=== PATIENT | female | born 1990 | race Caucasian/White ===

== ENCOUNTER 2019-01-16 13:32 | Emergency (ER) | payer SELFPAY ==
--- NOTE | 2019-01-16 14:09 | ER ---
Nurse's Notes [facility] Name: Yashira Torres Age: 28 yrs Sex: Female : 1990 Arrival Date: 01/16/2019 Time: 13:36 Bed 19 Private MD: Diagnosis: Cutaneous abscess of right hand-middle finger Presentation: 01/16 13:37 Presenting complaint: Patient states: I was stung by a weird bug on , it was in la1 my glove when I put it on and today it started leaking these like yellow/white balls and it is extremely painful. Transition of care: patient was not received from another setting of care. Onset of symptoms was January 16, 2019. Risk Assessment: Do you want to hurt yourself or someone else? Patient reports no desire to harm self or others. Initial Sepsis Screen: Does the patient meet any 2 criteria? No. Patient's initial sepsis screen is negative. Does the patient have a suspected source of infection? No. Patient's initial sepsis screen is negative. Care prior to arrival: None. 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 - Social history:: Smoking status: Patient/guardian denies using tobacco. - Ebola Screening: : No symptoms or risks identified at this time. Screenin:00 Abuse screen: Denies threats or abuse. Nutritional screening: No deficits noted. em Tuberculosis screening: No symptoms or risk factors identified. Fall Risk None identified. Assessment: 14:00 General: Appears in no apparent distress. comfortable, Behavior is calm, cooperative, em Denies fever. Pain: Pain: Complains of pain in dorsal aspect of distal phalanx of right middle finger. Neuro: Level of Consciousness is awake, alert, obeys commands, Oriented to person, place, time, situation. Cardiovascular: Capillary refill < 3 seconds Patient's skin is warm and dry. Respiratory: Airway is patent Respiratory effort is even, unlabored, Respiratory pattern is regular, symmetrical. Derm: Skin is intact, is healthy with good turgor, Skin is red, Wound noted dorsal aspect of distal phalanx of right middle finger. Musculoskeletal: Capillary refill < 3 seconds, Range of motion: intact in all extremities. 14:05 Reassessment: Patient appears in no apparent distress at this time. i agree with above iw assessment by Russ Sotomayor LVN. Vital Signs: 13:38 BP 123 / 65; Pulse 97; Resp 16; Temp 98.6; Pulse Ox 98% on R/A; Weight 83.01 kg; Height la1 5 ft. 7 in. (170.18 cm); 13:38 Body Mass Index 28.66 (83.01 kg, 170.18 cm) la1 ED Course: 13:36 Patient arrived in ED. mr 13:37 [facility] kb 13:37 Bret Meyer MD is Attending Physician. kb 13:38 Triage completed. la1 13:39 Arm band placed on right wrist. la1 13:46 Russ Sotomayor LVN is Primary Nurse. em 14:00 Patient has correct armband on for positive identification. Bed in low position. em 14:15 Patient did not have IV access during this emergency room visit. em 14:15 No provider procedures requiring assistance completed. em Administered Medications: 14:09 Drug: Bactrim (160 mg-800 mg (DS) 1 tablet Route: PO; em 14:18 Follow up: Response: Medication administered at discharge. em Outcome: 14:07 Discharge ordered by . kb 14:15 Discharged to home ambulatory. em 14:15 Condition: good 14:15 Discharge instructions given to patient, Instructed on discharge instructions, follow up and referral plans. medication usage, wound care, Demonstrated understanding of instructions, follow-up care, medications, wound care, Prescriptions given X 1. 14:19 Patient left the ED. em 14:20 Patient left the ED. kb Signatures: Tracy Guillory FNP-C FNP-Arash Shakira Gardiner mr Russ Sotomayor LVN LVN em Bren Tompkins, RN CARLOS iw Pedro Evans RN RN la1
--- NOTE | 2019-01-16 14:10 | EDPHYS ---
Physician Documentation [facility] Name: Yashira Torres Age: 28 yrs Sex: Female : 1990 Arrival Date: 01/16/2019 Time: 13:36 Bed 19 Private MD: ED Physician Bret Meyer HPI: 01/16 14:03 This 28 yrs old Female presents to ER via Ambulatory with complaints of kb Insect Bite. 14:05 The patient presents with an abscess of the dorsal aspect of distal phalanx of right kb middle finger. Description: draining, erythematous, swollen, warm. Onset: The symptoms/episode began/occurred 3 day(s) ago. Possible cause(s): insect bite. Associated signs and symptoms: Pertinent positives: drainage, erythema, swelling. Modifying factors: the symptoms are alleviated by nothing, the symptoms are aggravated by nothing. Severity of symptoms: At their worst the symptoms were mild, in the emergency department the symptoms are unchanged. The patient has not experienced similar symptoms in the past. The patient has not recently seen a physician. Pt reports there were a few bugs in her gloves a few days ago and one of them bit her right middle finger. 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 - Social history:: Smoking status: Patient/guardian denies using tobacco. - Ebola Screening: : No symptoms or risks identified at this time. ROS: 13:57 Constitutional: Negative for fever, chills, and weight loss, Cardiovascular: Negative kb for chest pain, palpitations, and edema, Respiratory: Negative for shortness of breath, cough, wheezing, and pleuritic chest pain, Abdomen/GI: Negative for abdominal pain, nausea, vomiting, diarrhea, and constipation, MS/Extremity: Negative for injury and deformity, Neuro: Negative for headache, weakness, numbness, tingling, and seizure. 13:57 Skin: Positive for abscess, erythema, swelling, of the dorsal aspect of distal phalanx of right middle finger. Exam: 13:57 Constitutional: This is a well developed, well nourished patient who is awake, alert, kb and in no acute distress. Head/Face: Normocephalic, atraumatic. Chest/axilla: Normal chest wall appearance and motion. Nontender with no deformity. No lesions are appreciated. Cardiovascular: Regular rate and rhythm with a normal S1 and S2. No gallops, murmurs, or rubs. Normal PMI, no JVD. No pulse deficits. Respiratory: Lungs have equal breath sounds bilaterally, clear to auscultation and percussion. No rales, rhonchi or wheezes noted. No increased work of breathing, no retractions or nasal flaring. Abdomen/GI: Soft, non-tender, with normal bowel sounds. No distension or tympany. No guarding or rebound. No evidence of tenderness throughout. MS/ Extremity: Pulses equal, no cyanosis. Neurovascular intact. Full, normal range of motion. Neuro: Awake and alert, GCS 15, oriented to person, place, time, and situation. Cranial nerves II-XII grossly intact. Motor strength 5/5 in all extremities. Sensory grossly intact. Cerebellar exam normal. Normal gait. 13:57 Skin: abscess, that is small, of the dorsal aspect of distal phalanx of right middle finger, with drainage, with surrounding cellulitis, that is mild. Vital Signs: 13:38 BP 123 / 65; Pulse 97; Resp 16; Temp 98.6; Pulse Ox 98% on R/A; Weight 83.01 kg; Height la1 5 ft. 7 in. (170.18 cm); 13:38 Body Mass Index 28.66 (83.01 kg, 170.18 cm) la1 MDM: 13:39 Patient medically screened. kb 13:56 Data reviewed: vital signs, nurses notes. Data interpreted: Pulse oximetry: on room air kb is 98 %. Interpretation: normal. Counseling: I had a detailed discussion with the patient and/or guardian regarding: the historical points, exam findings, and any diagnostic results supporting the discharge/admit diagnosis, the need for outpatient follow up, a family practitioner, to return to the emergency department if symptoms worsen or persist or if there are any questions or concerns that arise at home. Administered Medications: 14:09 Drug: Bactrim (160 mg-800 mg (DS) 1 tablet Route: PO; em 14:18 Follow up: Response: Medication administered at discharge. em Disposition: 06/22/19 14:07 Discharged to Home. Impression: Cutaneous abscess of right hand - middle finger. - Condition is Stable. - Discharge Instructions: Insect Bite, Olgg-[id number]-[id number], Skin Abscess, [id number]. - Prescriptions for Bactrim DS 800- 160 mg Oral Tablet - take 1 tablet by ORAL route every 12 hours for 10 days; 20 tablet. - Medication Reconciliation Form, Thank You Letter, Antibiotic Education, Prescription Opioid Use form. - Follow up: Emergency Department; When: As needed; Reason: Worsening of condition. Follow up: Private Physician; When: 2 - 3 days; Reason: Recheck today's complaints, Continuance of care, Re-evaluation by your physician. Addendum: 01/18/2019 09:39 Co-signature as Attending Physician, Bret Meyer MD I agree with the assessment and c woods plan of care. Signatures: Tracy Guillory, METAL CEILING HANGER-C METAL CEILING HANGER-Paulb Bret Meyer MD MD cha Munoz, Edgar, SAND OPERATOR SAND OPERATOR Pedro Evans RN RN la1 Corrections: (The following items were deleted from the chart) 01/16 14:19 14:07 01/16/2019 14:07 Discharged to Home. Impression: Cutaneous abscess of left hand - em middle finger. Condition is Stable. Forms are Medication Reconciliation Form, Thank You Letter, Antibiotic Education, Prescription Opioid Use. Follow up: Emergency Department; When: As needed; Reason: Worsening of condition. Follow up: Private Physician; When: 2 - 3 days; Reason: Recheck today's complaints, Continuance of care, Re-evaluation by your physician. 14:20 14:19 01/16/2019 14:07 Discharged to Home. Impression: Cutaneous abscess of left hand - kb middle finger. Condition is Stable. Discharge Instructions: Insect Bite, Peyd-wu-Wlwu, Skin Abscess, [id number]. Prescriptions for Bactrim DS 800-160 mg Oral Tablet - take 1 tablet by ORAL route every 12 hours for 10 days; 20 tablet. and Forms are Medication Reconciliation Form, Thank You Letter, Antibiotic Education, Prescription Opioid Use. Follow up: Emergency Department; When: As needed; Reason: Worsening of condition. Follow up: Private Physician; When: 2 - 3 days; Reason: Recheck today's complaints, Continuance of care, Re-evaluation by your physician. em 14:20 14:20 01/16/2019 14:07 Discharged to Home. Impression: Cutaneous abscess of right hand kb - middle finger. Condition is Stable. Discharge Instructions: Insect Bite, Klye-es-Pnzs, Skin Abscess, Adnc-zo-Lfus. Prescriptions for Bactrim DS 800-160 mg Oral Tablet - take 1 tablet by ORAL route every 12 hours for 10 days; 20 tablet. and Forms are Medication Reconciliation Form, Thank You Letter, Antibiotic Education, Prescription Opioid Use. Follow up: Emergency Department; When: As needed; Reason: Worsening of condition. Follow up: Private Physician; When: 2 - 3 days; Reason: Recheck today's complaints, Continuance of care, Re-evaluation by your physician. kb 14:21 13:57 Skin: Positive for abscess, erythema, swelling, of the dorsal aspect of distal kb phalanx of left middle finger, kb 14:21 13:57 Skin: abscess, that is small, of the dorsal aspect of distal phalanx of left kb middle finger, with drainage, with surrounding cellulitis, that is mild, kb 14:21 14:05 The patient presents with an abscess of the dorsal aspect of distal phalanx of kb left middle finger, kb 14:21 14:05 Pt reports there were a few bugs in her gloves a few days ago and one of them bit kb her left middle finger. 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 . kb
[2019-01-16] MEDS ORDERED: SMZ./TMP. 800/160 MG TABLET ONE (14:24)
[2019-01-16 14:28] VITALS: BP 123/65; TEMP 98.6; O2SAT 98
== END 2019-01-16 14:20 | disposition home or self-care (01) ==
LOC: ER 13:32
DX: L02.511 Cutaneous abscess of right hand (principal); W57.XXXA Bitten or stung by nonvenomous insect and other nonvenomous arthropods, initial encounter; Y93.9 Activity, unspecified; Y92.9 Unspecified place or not applicable; Z88.5 Allergy status to narcotic agent
CPT/HCPCS: 99283